=== PATIENT | male | born 1995 | race Hispanic/Latino ===

== ENCOUNTER 2021-09-05 15:56 | Emergency (ER) | payer OTHER ==
[~2021-09-05] VITALS: Ht 172.7 cm; Wt 75.0 kg
[2021-09-05 16:35] VITALS: BP 125/87
[2021-09-05] MEDS ORDERED: AMOX/K CLAV875 M1 PO (18:02)
== END 2021-09-05 18:27 | disposition home or self-care (01) | DRG 159 ==
LOC: ED 15:56
PROC: 0HQ1XZZ Repair Face Skin, External Approach (ICD-10-PCS; principal; 2021-09-05)
DX: S01.511A Laceration without foreign body of lip, initial encounter (principal); Y04.2XXA Assault by strike against or bumped into by another person, initial encounter; Y92.149 Unspecified place in prison as the place of occurrence of the external cause